=== PATIENT | female | born 1990 | race Caucasian/White ===

== ENCOUNTER 2020-12-03 14:57 | Outpatient (CLI) | payer OTHER, SELFPAY ==
[~2020-12-03 14:57] MED LIST: FERR-15 PO; FERR-252 PO; IBUP-1842 PO; PREN-385 PO
== END 2020-12-03 20:06 | disposition home or self-care (01) ==
LOC: MLB 14:57 → EDSTATUS 12-09 12:00
PROVIDERS: ATTEND Obstetrics & Gynecology
DX: Z01.812 Encounter for preprocedural laboratory examination (principal); Z20.822 Contact with and (suspected) exposure to COVID-19; O82 Encounter for cesarean delivery without indication
CPT/HCPCS: U0003

== ENCOUNTER 2020-12-09 02:18 | Inpatient (IN) | payer OTHER, SELFPAY ==
[~2020-12-09] VITALS: Ht 157.5 cm; Wt 77.1 kg
[2020-12-09] MEDS ORDERED: METHYLERGONOVINE 0.2 MG/ML AMP IM PRN ×2 (02:50→05:40)
[2020-12-09] MEDS ORDERED: LACTATED RINGERS 1,000 ML IV SCH (02:50)
[2020-12-09] MEDS ORDERED: CITRIC ACID/SODIUM CITRATE 30 ML UDC PO SCH (02:50)
[2020-12-09 03:10] LABS: BASOPHILS # (AUTO) 0.1 K/uL (0.00-0.22); BASOPHILS % (AUTO) 0.5 % (0.0-2.0); EOSINOPHILS # (AUTO) 0.2 K/uL (0-0.4); EOSINOPHILS % (AUTO) 1.6 % (0.0-4.0); HEMATOCRIT 38.5 % (36-48); HEMOGLOBIN 13.1 g/dL (12.0-16.0); LYMPHOCYTES # (AUTO) 2.7 K/uL (2.5-16.5); LYMPHOCYTES % (AUTO) 24.4 % (20.5-51.1); MEAN CORPUSCULAR HEMOGLOBIN 31 pg (27-31); MEAN CORPUSCULAR HGB CONC 34 g/dL (33-37); MEAN CORPUSCULAR VOLUME 89.8 fL (80-94); MONOCYTES # (AUTO) 0.7 K/uL (0.8-1.0); MONOCYTES % (AUTO) 6.8 % (1.7-9.3); NEUTROPHILS # (AUTO) 7.3 K/uL (1.8-7.7); NEUTROPHILS % (AUTO) 66.7 % (42.2-75.2); PLATELET COUNT (AUTO) 191 K/uL (140-450); RED BLOOD CELL COUNT(AUTO) 4.29 MIL/uL (4.20-5.40); RED CELL DISTRIBUTION WIDTH 13.1 % (11.6-13.7); WHITE BLOOD COUNT (AUTO) 10.9 K/uL (4.8-10.8)
[2020-12-09 03:11] LABS: APPEARANCE,URINE CLOUDY (CLEAR); BILIRUBIN,URINE 1+ (NEGATIVE); BLOOD, URINE 3+ (NEGATIVE); COLOR,URINE BROWN (YELLOW); LEUKOCYTE ESTERASE ,URINE NEGATIVE (NEGATIVE); NITRITE, URINE NEGATIVE (NEGATIVE); UGLUCOSE NEGATIVE (NEGATIVE)
[2020-12-09 03:21] LABS: WBC,URINE 0-5 /HPF (0-5)
[2020-12-09 03:28] LABS: ALBUMIN 3.2 g/dL (3.4-5.0); ANION GAP 12.9 (8-16); CARBON DIOXIDE 23.6 mmol/L (21-32); CREATININE 0.7 mg/dL (0.6-1.3); POTASSIUM 3.5 mmol/L (3.5-5.1); TOTAL BILIRUBIN 0.4 mg/dL (0.0-1.0)
[2020-12-09] MEDS ORDERED: ceFAZolin 1,000 MG VIAL ONE (03:34)
[2020-12-09 04:13] VITALS: BP 106/57
[2020-12-09] MEDS ORDERED: MORPHINE PRES FREE 10 MG/10 ML AMP IV ONE (05:13)
[2020-12-09] MEDS ORDERED: KETAMINE 500 MG/5 ML VIAL ONE (05:14)
[2020-12-09] MEDS ORDERED: oxyCODONE/APAP 5/325 MG 1 TAB TAB PO PRN (05:40)
[2020-12-09] MEDS ORDERED: MEASLES, MUMPS, AND RUBELLA 1 VIAL SQVAC ONE (05:40)
[2020-12-09] MEDS ORDERED: PROMETHAZINE 25 MG/ML VIAL IVP PRN (05:40)
[2020-12-09] MEDS ORDERED: ceFAZolin 1,000 MG VIAL IVP ONE (06:00)
[2020-12-09] MEDS ORDERED: OXYTOCIN 20 UNITS/LR PREMIX 1,000 ML IV ONE ×2 (06:07→21:19)
[2020-12-09] MEDS ORDERED: MIDAZOLAM 2 MG/2 ML VIAL ONE (06:24)
[2020-12-09] MEDS ORDERED: MEPERIDINE 25 MG/ML SYR ONE (07:09)
[2020-12-09] MEDS ORDERED: ONDANSETRON 4 MG/2 ML VIAL IVP PRN (07:20)
[2020-12-09] MEDS ORDERED: diphenhydrAMINE 50 MG/ML VIAL IVP PRN (07:20)
[2020-12-09] MEDS ORDERED: NALOXONE 0.4 MG/ML VIAL IVP PRN ×3 (07:20)
[2020-12-09] MEDS ORDERED: NALBUPHINE 10 MG/ML AMP IVP PRN (07:20)
[2020-12-09] MEDS ORDERED: diphenhydrAMINE 50 MG/ML VIAL ONE (07:21)
[2020-12-09] MEDS ORDERED: MEPERIDINE 25 MG/ML SYR IVP PRN (07:25)
[2020-12-09] MEDS: ACETAMINOPHEN 100 ML IV PRN ×2 (07:36→08:15)
--- NOTE | 2020-12-09 09:14 | NUR ---
PATIENT HAS BEEN SCREENED AND CATEGORIZED LOW NUTRITION RISK. PATIENT WILL BE SEEN WITHIN 7 DAYS OF ADMISSION. 12/15/[address]
[2020-12-09] MEDS: KETOROLAC 30 MG/ML VIAL IM/IVP SCH ×2 (14:05→19:55)
[2020-12-09] MEDS: OXYTOCIN 20 UNITS in LACTATED RINGERS 1,000 ML IV SCH ×2 (14:06→22:09)
[2020-12-10] MEDS: KETOROLAC 30 MG/ML VIAL IM/IVP SCH (01:53)
[2020-12-10 06:19] LABS: BASOPHILS # (AUTO) 0.1 K/uL (0.00-0.22); BASOPHILS % (AUTO) 0.5 % (0.0-2.0); EOSINOPHILS # (AUTO) 0.1 K/uL (0-0.4); EOSINOPHILS % (AUTO) 1.2 % (0.0-4.0); HEMOGLOBIN 10.8 g/dL (12.0-16.0); LYMPHOCYTES # (AUTO) 2.8 K/uL (2.5-16.5); LYMPHOCYTES % (AUTO) 26.6 % (20.5-51.1); MEAN CORPUSCULAR HEMOGLOBIN 31 pg (27-31); MEAN CORPUSCULAR HGB CONC 35 g/dL (33-37); MEAN CORPUSCULAR VOLUME 89.9 fL (80-94); MONOCYTES # (AUTO) 0.8 K/uL (0.8-1.0); MONOCYTES % (AUTO) 7.5 % (1.7-9.3); NEUTROPHILS # (AUTO) 6.8 K/uL (1.8-7.7); NEUTROPHILS % (AUTO) 64.2 % (42.2-75.2); PLATELET COUNT (AUTO) 141 K/uL (140-450); RED BLOOD CELL COUNT(AUTO) 3.45 MIL/uL (4.20-5.40); RED CELL DISTRIBUTION WIDTH 13.3 % (11.6-13.7); WHITE BLOOD COUNT (AUTO) 10.6 K/uL (4.8-10.8)
[2020-12-10] MEDS: bisacodyL 10 MG SUPP RC SCH (09:55)
[2020-12-10] MEDS: IBUPROFEN 800 MG TAB PO SCH ×2 (13:52→20:03)
[2020-12-11] MEDS ORDERED: CAMERA MC ONE (01:58)
[2020-12-11] MEDS: IBUPROFEN 800 MG TAB PO SCH ×3 (02:01→16:15)
[2020-12-11] MEDS: oxyCODONE/APAP 5/325 MG 1 TAB TAB PO SCH ×3 (06:00→13:05)
[2020-12-11] MEDS: bisacodyL 10 MG SUPP RC SCH (09:38)
[2020-12-11] MEDS ORDERED: oxyCODONE/APAP 5/325 MG 1 TAB TAB PO PRN (17:00)
== END 2020-12-11 18:20 | disposition home or self-care (01) | DRG 788 ==
LOC: MLD 02:18 → MFCC 08:15
PROVIDERS: ADMIT Obstetrics & Gynecology; ATTEND Obstetrics & Gynecology
PROC: 10D00Z1 Extraction of Products of Conception, Low, Open Approach (ICD-10-PCS; principal; 2020-12-09 05:30)
DX: O34.211 Maternal care for low transverse scar from previous cesarean delivery (principal); Z37.0 Single live birth; Z20.822 Contact with and (suspected) exposure to COVID-19; O99.02 Anemia complicating childbirth; Z3A.39 39 weeks gestation of pregnancy; O77.0 Labor and delivery complicated by meconium in amniotic fluid
CPT/HCPCS: 36415; 51702; 70450; 80053; 81001; 85025; 86592; 86886; 86900; 86901; 87086; J0690; J1200; J1885; J2175; J2250; J2270; J2590; J7060; J7120